=== PATIENT | female | born 1970 | race Caucasian/White ===

== ENCOUNTER 2016-12-04 15:50 | Emergency (ER) | payer OTHER ==
[~2016-12-04] VITALS: Ht 162.6 cm; Wt 80.6 kg
[~2016-12-04 15:50] MED LIST: Augmentin PO; BACTRIM,SEPT1 TABLET PO; DICLOFENAC SODI75 MG PO; DILAUDID2 MG PO; DILAUDID4 MG PO; GABAPENTIN100 MG PO; IBUPROFEN600 MG PO; LYRICA225 MG PO; NOHOMEMEDS; PHENERMINE; PHENTERMINE H37.5 MG PO; PLETAL100 MG PO; PLETAL50 MG PO; PREDNISONE20 MG PO; TRENTAL400 MG PO; VALIUM5 MG PO; XANAX1 MG PO; Xanax PO
[2016-12-04] MEDS ORDERED: DILAUDID2 MG PO (17:53)
[2016-12-04 18:13] VITALS: BP 157/90
== END 2016-12-04 18:14 | disposition home or self-care (01) ==
LOC: EME 15:50
PROC: 0H9BXZZ Drainage of Right Upper Arm Skin, External Approach (ICD-10-PCS; principal; 2016-12-04)
DX: L02.411 Cutaneous abscess of right axilla (principal); J45.909 Unspecified asthma, uncomplicated; F17.200 Nicotine dependence, unspecified, uncomplicated
CPT/HCPCS: 87070; 87075; 87076; 87205; 99281; 99284; J3010

== ENCOUNTER 2016-12-17 10:35 | Day surgery (SDC) | payer OTHER ==
[~2016-12-17] VITALS: Ht 160 cm; Wt 77.6 kg
[~2016-12-17 10:35] MED LIST changes: +VENTOLIN HFA18 GM IH
[2016-12-17 11:33] VITALS: BP 120/78
[2016-12-17 14:15] VITALS: BP 129/67
[2016-12-17 16:24] VITALS: BP 130/75
== END 2016-12-17 15:40 | disposition home or self-care (01) ==
LOC: SDC 10:35
PROC: 0JBD0ZZ Excision of Right Upper Arm Subcutaneous Tissue and Fascia, Open Approach (ICD-10-PCS; principal; 2016-12-17)
DX: L73.2 Hidradenitis suppurativa (principal); J45.909 Unspecified asthma, uncomplicated; F41.8 Other specified anxiety disorders; F17.210 Nicotine dependence, cigarettes, uncomplicated; Z80.0 Family history of malignant neoplasm of digestive organs; Z83.3 Family history of diabetes mellitus
CPT/HCPCS: 88305; J0131; J0690; J1100; J1170; J1885; J2250; J2405; J3010

== ENCOUNTER 2017-01-18 09:28 | Day surgery (SDC) | payer OTHER ==
[~2017-01-18] VITALS: Ht 160 cm; Wt 78.9 kg
[2017-01-18 09:53] VITALS: BP 134/77
[2017-01-18] MEDS ORDERED: DILAUDID4 MG PO (13:18)
[2017-01-18 13:45] VITALS: BP 123/86
[2017-01-18 14:19] VITALS: BP 122/82
== END 2017-01-18 14:35 | disposition home or self-care (01) ==
LOC: SDC 09:28
DX: L73.2 Hidradenitis suppurativa (principal); T81.31XA Disruption of external operation (surgical) wound, not elsewhere classified, initial encounter; Z91.040 Latex allergy status; Z88.5 Allergy status to narcotic agent; Z91.041 Radiographic dye allergy status; Z88.8 Allergy status to other drugs, medicaments and biological substances; Y83.8 Other surgical procedures as the cause of abnormal reaction of the patient, or of later complication, without mention of misadventure at the time of the procedure
CPT/HCPCS: 88305; J0690; J1100; J1885; J2250; J2405; J3010